=== PATIENT | male | born 1995 | race Caucasian/White ===

== ENCOUNTER 2018-04-26 10:37 | Inpatient (IN) | payer BC, OTHER ==
[~2018-04-26] VITALS: Ht 175.3 cm; Wt 70.3 kg
--- NOTE | 2018-06-22 11:50 | NUR ---
Pre-Admission Patient met in intake office accompanied by his Mother,he is alert and oriented and able to answer most questions but admits to sometimes not remembering things well. Substance abuse History: ETOH ( hard Liquor/Beer) 1 Pint hard Liquor every day for past 1 year ,has been drinking alcohol since he was 14 yrs old,last drink was last night 06/21/18- 25oz Beer. Benzodiazepines ( Xanax) 4mg PO daily for the past 1 year but has been using Xanax since he was 17yrs old ( 5 years),last consumed 3-4 mg PO on 06/19/18 Cocaine - snort- less than a Gram per week- can't remember when last used ,maybe last week. Marijuana- smokes non daily with friends- unable to tell amount,maybe 2 joints a week He has a history of seizures from Benzo and ETOH withdrawal ,last one approx 1 month ago,he did not seek medical help No History of OD or cardiac complications but reports numerous blackouts. Allergy to bananas,Full code, regular diet,Ht is 5'9"and 150lbs on standing scale. Will continue assessment when patient is on the floor.
[2018-06-22 12:42] LABS: *AMPHETAMINE, URINE NEGATIVE (NEGATIVE); *BARBITURATE, URINE NEGATIVE (NEGATIVE); *CANNABINOID, URINE POSITIVE (NEGATIVE); *COCCAINE, URINE POSITIVE (NEGATIVE); *OPIATE, URINE NEGATIVE (NEGATIVE); *PHENCYCLIDINE SCREEN,URINE NEGATIVE (NEGATIVE)
[2018-06-22] MEDS ORDERED: LAMO150T PO (13:13)
[2018-06-22] MEDS ORDERED: LORAZEPAM 1 MG TABLET PO PRN ×2 (13:45)
[2018-06-22] MEDS ORDERED: THIAMINE HCL 200 MG/2 ML VIAL IM ONE (13:45)
[2018-06-22] MEDS ORDERED: LOPERAMIDE HCL 2 MG CAPSULE PO PRN ×2 (13:45)
[2018-06-22] MEDS ORDERED: ONDANSETRON 4 MG/2 ML VIAL IM PRN (13:45)
[2018-06-22] MEDS ORDERED: MAGNESIUM HYDROXIDE 30 ML LIQUID UDC PO PRN (13:45)
[2018-06-22] MEDS ORDERED: ONDANSETRON ODT 4 MG TAB.RAPDIS SL PRN (13:45)
[2018-06-22] MEDS ORDERED: MAG HYDROX/AL HYDROX/SIMETH 30 ML LIQUID UDC PO PRN (13:45)
[2018-06-22] MEDS ORDERED: IBUPROFEN 600 MG TABLET PO PRN (13:45)
[2018-06-22] MEDS ORDERED: LORAZEPAM 2 MG/1 ML VIAL IM PRN (13:45)
[2018-06-22] MEDS ORDERED: 5 DAY TAPER OF LORAZEPAM -SERENITY PROTOCOL PO PRN (13:45)
[2018-06-22 14:07] LABS: BASOPHILS % (AUTO) 0.6 % (0.0-2.0); EOSINOPHILS # (AUTO) 0.1 K/uL (0.0-0.7); EOSINOPHILS % (AUTO) 1.8 % (0.0-7.0); HEMATOCRIT 51.2 % (36.7-47.1); HEMOGLOBIN 17.2 g/dL (12.5-16.3); LYMPHOCYTES # (AUTO) 1.2 K/uL (20.0-40.0); LYMPHOCYTES % (AUTO) 16.8 % (20.5-51.5); MEAN CORPUSCULAR HEMOGLOBIN 27.7 uug (23.8-33.4); MEAN CORPUSCULAR HGB CONC 34 g/dL (32.5-36.3); MEAN CORPUSCULAR VOLUME 82.8 fL (73.0-96.2); MONOCYTES # (AUTO) 0.9 K/uL (2.0-10.0); MONOCYTES % (AUTO) 12.8 % (0.0-11.0); NEUTROPHILS # (AUTO) 4.7 K/uL (1.8-8.9); PLATELET COUNT (AUTO) 268 K/uL (152-348); RED BLOOD CELL COUNT(AUTO) 6.19 MIL/uL (4.06-5.63); WHITE BLOOD COUNT (AUTO) 6.9 K/uL (3.6-10.2)
[2018-06-22 14:19] LABS: ALANINE AMINOTRANSFERASE 25 U/L (16-63); ALKALINE PHOSPHATASE 66 U/L (50-136); ASPARTATE AMINOTRANSFERASE 19 U/L (15-37); BILIRUBIN,TOTAL 0.3 mg/dL (0.2-1.0); CARBON DIOXIDE 29 mmol/L (21-32); CHLORIDE 99 mmol/L (98-107); CREATININE 1.8 mg/dL (0.6-1.3); GLUCOSE 83 mg/dL (74-106); MAGNESIUM 2.5 mg/dL (1.8-2.4); POTASSIUM 4.2 mmol/L (3.5-5.1); TOTAL PROTEIN, SERUM 8.3 g/dL (6.4-8.2); UREA NITROGEN, BLOOD 19 mg/dL (7-18)
[2018-06-22 14:30] LABS: THYROID STIMULATING HORMONE 0.237 mIU/mL (0.358-3.740)
[2018-06-22] MEDS: LORAZEPAM 1 MG TABLET PO SCH ×3 (14:39→20:50)
[2018-06-22 15:02] LABS: ETHANOL < 3 MG/DL (0-0)
[2018-06-22 16:00] VITALS: BP 149/76
[2018-06-22] MEDS ORDERED: Medication Not On Formulary EA (Lamotrigine 1 TAB) PO SCH (17:00)
--- NOTE | 2018-06-22 18:22 | NUR ---
Admission Note Patient is a 22 yr old male who was admitted to [facility] 06/22/18 @ 1231 for a medically supervised withdrawal from ETOH ( Hard Liquor/Beer ), Benzodiazepines ( Xanax) and also states he was abusing Cocaine and Marijuana. He is alert, speech is clear and does not appear to be experiencing any withdrawals at this time, CIWA score is 5 Substance abuse History: ETOH ( hard Liquor/Beer) 1 Pint hard Liquor every day for past 1 year ,has been drinking alcohol since he was 14 yrs old,last drink was last night 06/21/18- 25oz Beer. Benzodiazepines ( Xanax) 4mg PO daily for the past 1 year but has been using Xanax since he was 17yrs old ( 5 years),last consumed 3-4 mg PO on 06/19/18 Cocaine - snort- less than a Gram per week- can't remember when last used ,maybe last week. Marijuana- smokes non daily with friends- unable to tell amount, maybe 1-2 oz a day He has a history of seizures from Benzo and ETOH withdrawal ,last one approx 1 month ago, he did not seek medical help No History of OD or cardiac complications but reports numerous blackouts. Allergy to bananas, Full code, regular diet, Ht is 5'9"and 150lbs on standing scale. Medical History: Patient states that 4 years ago he was diagnosed with epilepsy and he takes Lamictal 150mg PO BID Treatment History: Impact: 05/2017 for 3 days and relapsed immediately upon discharge [facility]-2011 for 18months and then remained sober for an additional 4 months. He states the reason why he started using drugs and drinking alcohol was out of boredom, sadness and it was a way to escape his feelings. The reason why he is seeking treatment today he says is "I don't need drugs and alcohol to escape anymore, need to be more aware". He states he has tried stopping on his own many times but it would only last for a few days as he would think he could have " just one" and be able to control it ,or just use " one time "and not go back to using drugs/alcohol daily. He states he has too much free time since he does not work and has been hanging out with the wrong people who negatively influence him. When he tries to stop using he is afraid he might have a seizure ( which he had 1 last month which was Benzo /Alcohol related withdrawal), his withdrawal symptoms also include irritability, headaches, depression and loss of appetite. His support system is his 2 Moms ( he was adopted at and knows very little of his biological parents , only that his Father moved back to [facility]). Lung sounds clear, no SOB, BS present in all 4 quadrants, PERRLA ,skin intact Patient is in room 322
--- NOTE | 2018-06-22 19:25 | NUR ---
End of Shift Newly admitted patient today 06/22/18 for a medically supervised withdrawal from ETOH and Benzodiazepines, he has a history of epilepsy and seizures, he has been placed on a 5 day Ativan taper which started today. No PRN medications have been requested or required this shift. He had a fluid intake of 1000ml,3 voids and 0 BM, his last CIWA was 8 @ 1600. Continue to follow MD plan of care. Endorsed to mini shifter
--- NOTE | 2018-06-22 19:49 | NUR ---
START OF SHIFT NOTE Rcvd report form outgoing nurse. Pt is a 22 y/o male A/O to person, place, time, and purpose. Pt was admitted for medically supervised withdrawal from ETOH and Benzodiazepines. Pt is on day 1 of a 5 day Ativan taper. Pt has been presenting w/ sweats, fine tremors, anxiety, and a cloudy/unclear head. Pt rcvd no PRN medications during previous shift. Last CIWA 8 @ 1600. Call light is within reach. Pt will continue to be monitored and needs met.
[2018-06-22 20:17] VITALS: BP 136/66
--- NOTE | 2018-06-22 20:20 | NUR ---
CIWA ASSESSMENT CIWA 8. Pt has been presenting w/ sweats, fine tremors, anxiety, and a cloudy/unclear head. V/S: T:98.2, P:72 RR:18, SPO2:98, BP:136/66.
[2018-06-22] MEDS: LAMOTRIGINE 100 MG TABLET PO SCH (20:50)
--- NOTE | 2018-06-23 00:09 | NUR ---
CIWA DEFERRED Pt is in bed w/ his eyes closed. Pt's respirations are unlabored and even.
--- NOTE | 2018-06-23 04:17 | NUR ---
CIWA DEFERRED Pt is in bed w/ his eyes closed. Pt's respirations are unlabored and even.
--- NOTE | 2018-06-23 07:12 | NUR ---
END OF SHIFT NOTE Endorsed pt to oncoming nurse. Pt is a 22 y/o male A/O to person, place, time, and purpose. Pt was admitted for medically supervised withdrawal from ETOH and Benzodiazepines. Pt completed day 1 of a 5 day Ativan taper. Pt continued been presenting w/ sweats, fine tremors, anxiety, and a cloudy/unclear head. Pt denies any withdrawal s/s, as well as, any S/I or H/I. PT rcvd no PRN medications during shift. Pt's fluid intake was 736ml and he slept for 9hrs. Last CIWA 8 @ 1999. Call light is within reach
--- NOTE | 2018-06-23 07:15 | NUR ---
Start Of Shift Patient is a 22 yr old male who was admitted to [facility] on 06/22/18 for a medically supervised withdrawal from ETOH and Benzodiazepines,he has been placed on a 5 day Ativan taper and today is day 2.No PRN medications were required or requested on PM shift,he slept for 9 hours and last CIWA was 8. Currently he is asleep in bed,breathing even and unlabored, call light with reach.Continue to follow MD plan of care and offer support and encouragement.
[2018-06-23 07:19] LABS: BASOPHILS % (AUTO) 0.8 % (0.0-2.0); EOSINOPHILS # (AUTO) 0.2 K/uL (0.0-0.7); EOSINOPHILS % (AUTO) 3.4 % (0.0-7.0); HEMATOCRIT 47.8 % (36.7-47.1); HEMOGLOBIN 16.2 g/dL (12.5-16.3); LYMPHOCYTES # (AUTO) 1.3 K/uL (20.0-40.0); LYMPHOCYTES % (AUTO) 20.9 % (20.5-51.5); MEAN CORPUSCULAR HEMOGLOBIN 28.1 uug (23.8-33.4); MEAN CORPUSCULAR HGB CONC 34 g/dL (32.5-36.3); MEAN CORPUSCULAR VOLUME 82.7 fL (73.0-96.2); MONOCYTES # (AUTO) 0.7 K/uL (2.0-10.0); MONOCYTES % (AUTO) 11.3 % (0.0-11.0); NEUTROPHILS # (AUTO) 3.9 K/uL (1.8-8.9); NEUTROPHILS % (AUTO) 63.6 % (38.5-71.5); PLATELET COUNT (AUTO) 258 K/uL (152-348); RED BLOOD CELL COUNT(AUTO) 5.78 MIL/uL (4.06-5.63); WHITE BLOOD COUNT (AUTO) 6.2 K/uL (3.6-10.2)
[2018-06-23 07:56] LABS: BILIRUBIN,TOTAL 0.5 mg/dL (0.2-1.0); CREATININE 1.6 mg/dL (0.6-1.3); MAGNESIUM 2.2 mg/dL (1.8-2.4); TOTAL PROTEIN, SERUM 7.7 g/dL (6.4-8.2)
[2018-06-23 08:00] VITALS: BP 121/76
[2018-06-23] MEDS: LAMOTRIGINE 100 MG TABLET PO SCH ×2 (08:57→21:34)
[2018-06-23] MEDS: MULTIVITAMINS,THERAPEUTIC TABLET PO SCH (08:57)
[2018-06-23] MEDS: FOLIC ACID 1 MG TABLET PO SCH (08:57)
[2018-06-23] MEDS: THIAMINE HCL 100 MG TABLET PO SCH (08:57)
[2018-06-23] MEDS: LORAZEPAM 1 MG TABLET PO SCH ×4 (08:57→21:33)
[2018-06-23] MEDS ORDERED: TUBERCULIN,PURIF.PROT.DERIV. 5 TU/0.1 ML TEST ID ONE (09:00)
--- NOTE | 2018-06-23 09:00 | NUR ---
PPD placed RFA
--- NOTE | 2018-06-23 09:00 | NUR ---
ARNOLDO 11 Patient presents with lethargy,restlessness ,diaphoresis and chills Scheduled Ativan 1mg PO given
[2018-06-23 12:00] VITALS: BP 124/70
--- NOTE | 2018-06-23 12:30 | NUR ---
ARNOLDO 11 Patient presents with lethargy,restlessness ,diaphoresis and chills Scheduled Ativan 1mg PO given
--- NOTE | 2018-06-23 12:46 | NUR ---
Therapist prompted client to attend all group therapy sessions.
[2018-06-23 15:07] LABS: HEPATITIS B SURFACE AG Negative (Negative)
[2018-06-23 16:00] VITALS: BP 146/78
--- NOTE | 2018-06-23 16:00 | NUR ---
ARNOLDO 11 Patient presents with lethargy,restlessness ,diaphoresis and chills
--- NOTE | 2018-06-23 19:04 | NUR ---
End of Shift Patient is a 22 yr old male who was admitted on 06/22/18 for a medically supervised withdrawal from ETOH and Benzodiazepines, he has a history of epilepsy and seizures, he has been placed on a 5 day Ativan taper and this is day 2. No PRN medications have been requested or required this shift. Patient presents with lethargy, restlessness ,diaphoresis and chills. He had a fluid intake of 2750 ml, 4 voids and 0 BM, his last CIWA was 11 @ 1600. Continue to follow MD plan of care. Endorsed to date night caregiver
--- NOTE | 2018-06-23 19:30 | NUR ---
START OF SHIFT Pt is a 22 yr old male who was admitted for ETOH and Benzodiazepines withdrawal. Pt continues on a 5 day Ativan taper as ordered and this is day 2. No PRN medications were goven per day shift. Pt presents with anxiety, restlessness ,diaphoresis and chills. Last CIWA was 11 @ 1600. All safety measures in place,call light is within reach,will continue to monitor.
[2018-06-23 20:00] VITALS: BP 146/79
--- NOTE | 2018-06-23 20:00 | NUR ---
[facility] 11 Patient presents with anxiety,restlessness ,intermittent diaphoresis and chills;medications are due soon.
--- NOTE | 2018-06-24 | NUR ---
CIWA DEFERRED Pt is resting in bed with his eyes closed; respirations are unlabored and even;no s/s of distress noted;v/s refused.
--- NOTE | 2018-06-24 | NUR ---
CIWA DEFERRED Pt is resting in bed with his eyes closed; respirations are unlabored and even;no s/s of distress noted;v/s refused.
--- NOTE | 2018-06-24 06:49 | NUR ---
END OF SHIFT Pt is a 22 yr old male who was admitted for ETOH and Benzodiazepines withdrawal. Pt continues on a 5 day Ativan taper as ordered and this is day 3. No PRN medications were given during the night. Pt presented with anxiety, restlessness ,diaphoresis and chills.Routine medications are helpful in managing withdrawal symptoms. Last CIWA was 10 @ 2000.Pt slept 8 hours, fluid intake was 1000 ml,no urine voided; no b/m reported. All safety measures in place,call light is within reach,will endorse care to day shift nurse.
--- NOTE | 2018-06-24 07:30 | NUR ---
Start of Shift Resident Care Director received report on 22 year old male admitted to [facility] on 06/22/19 for medical management of ETOH and Benzodiazepine withdrawals. Pt endorses PMH of Epilepsy and no PPH. Pt endorses allergies to Bananas. Full code and regular diet. Pt currently on 5 day Ativan taper with last CIWA 10, per NOC report. Pt not administered PRN medications per NOC report. Resident Care Director encounters pt in pts room with pt resting with eyes close. Even and unlabored respirations noted. Bed in low position with wheels locked and side rails up x2.
[2018-06-24 08:00] VITALS: BP 113/67
--- NOTE | 2018-06-24 08:00 | NUR ---
CIWA 12 Pt is diaphoretic, tremulous, anxious and restless. Pt with complaints of TH, nausea and chills. Will continue to monitor, support and encourage according to plan of care.
[2018-06-24] MEDS: LORAZEPAM 1 MG TABLET PO SCH ×3 (09:31→21:29)
[2018-06-24] MEDS: MULTIVITAMINS,THERAPEUTIC TABLET PO SCH (09:31)
[2018-06-24] MEDS: FOLIC ACID 1 MG TABLET PO SCH (09:31)
[2018-06-24] MEDS: LAMOTRIGINE 100 MG TABLET PO SCH ×2 (09:31→21:29)
[2018-06-24] MEDS: THIAMINE HCL 100 MG TABLET PO SCH (09:31)
--- NOTE | 2018-06-24 10:38 | NUR ---
Therapist prompted client to attend group therapy.
[2018-06-24 12:00] VITALS: BP 113/58
--- NOTE | 2018-06-24 12:00 | NUR ---
CIWA 12 Pt is anxious and restless. Pt with tremors and diaphoresis. Pt with chills and sweats. Will continue to monitor, support and encourage according to plan of care.
--- NOTE | 2018-06-24 16:07 | NUR ---
Endorsement Repatcher endorsed care of pt to TARA Raymond with no further comments, questions or concerns voiced. Will continue to monitor, support and encourage according to plan of care.
--- NOTE | 2018-06-24 16:10 | NUR ---
Assumed care of Pt. He is A/O X4 with no complaints at this time.
[2018-06-24 17:17] VITALS: BP 132/75
--- NOTE | 2018-06-24 18:49 | NUR ---
END OF SHIFT: Pt continues on Ativan taper to manage s/s of w/d which include anxiety,sweats ,restlessness and irritability. He attended groups and interacted with peers/ Last CIWA 10. He was compliant with increased fluids.Will pass shift report to oncoming night nurse.
--- NOTE | 2018-06-24 19:30 | NUR ---
START OF SHIFT Pt is a 22 y/o male admitted on 06/22/18 for ETOH and benzo withdrawal. Pt is on a 5 day Ativan taper, tolerating well. Last CIWA 10. Upon assessment Pt presents with anxiety, agitation, body aches, nausea, and difficulty falling and staying asleep. Medications due. Safety measures in place. Call light within reach.
[2018-06-24 20:00] VITALS: BP 133/79
--- NOTE | 2018-06-24 20:00 | NUR ---
CIWA 8 Pt presents with anxiety, agitation, body aches, nausea, and difficulty falling and staying asleep. Safety measures in place. Call light within reach. Will continue to monitor.
--- NOTE | 2018-06-25 | NUR ---
CIWA DEFERRED AND VITAL SIGNS REFUSED Patient is noted in bed with eyes closed. Breathing even and non labored. CIWA and vital signs not able to be completed per order. Safety measures in place. Call light within reach. Will continue to monitor.
--- NOTE | 2018-06-25 07:07 | NUR ---
END OF SHIFT Pt is a 22 y/o male admitted on 06/22/18 for ETOH and benzo withdrawal. Pt to continue a 5 day Ativan taper. Pt presented with anxiety, agitation, body aches, nausea, and difficulty falling and staying asleep. No PRN medications were administered during shift. Last CIWA 8. Pt slept 7 hours. Intake 1355 ml, void x 5, stool x 0. Safety measures in place. Call light within reach. Pt's needs have been met. Endorsed to day shift nurse.
--- NOTE | 2018-06-25 07:30 | NUR ---
Start of Shift Housing Director received report on 22 year old male admitted to [facility] on 06/22/19 for medical management of ETOH and Benzodiazepine withdrawals. Pt endorses PMH of Epilepsy and no PPH. Pt endorses allergies to Bananas. Full code and regular diet. Pt currently on 5 day Ativan taper with last CIWA 8, per NOC report. Pt not administered PRN medications per NOC report. Housing Director encounters pt in pts room with pt resting with eyes close. Even and unlabored respirations noted. Bed in low position with wheels locked and side rails up x2. Will continue to monitor, support and encourage according to plan of care.
[2018-06-25 07:33] LABS: BASOPHILS % (AUTO) 0.6 % (0.0-2.0); EOSINOPHILS # (AUTO) 0.2 K/uL (0.0-0.7); EOSINOPHILS % (AUTO) 3.9 % (0.0-7.0); HEMATOCRIT 46.6 % (36.7-47.1); HEMOGLOBIN 15.8 g/dL (12.5-16.3); LYMPHOCYTES # (AUTO) 1.5 K/uL (20.0-40.0); LYMPHOCYTES % (AUTO) 28.3 % (20.5-51.5); MEAN CORPUSCULAR HGB CONC 34 g/dL (32.5-36.3); MEAN CORPUSCULAR VOLUME 82.5 fL (73.0-96.2); MONOCYTES # (AUTO) 0.6 K/uL (2.0-10.0); MONOCYTES % (AUTO) 10.3 % (0.0-11.0); NEUTROPHILS # (AUTO) 3.1 K/uL (1.8-8.9); NEUTROPHILS % (AUTO) 56.9 % (38.5-71.5); PLATELET COUNT (AUTO) 261 K/uL (152-348); RED BLOOD CELL COUNT(AUTO) 5.65 MIL/uL (4.06-5.63); WHITE BLOOD COUNT (AUTO) 5.4 K/uL (3.6-10.2)
[2018-06-25 07:39] LABS: CREATININE 1.3 mg/dL (0.6-1.3); POTASSIUM 4.3 mmol/L (3.5-5.1)
[2018-06-25 08:00] VITALS: BP 116/69
--- NOTE | 2018-06-25 08:00 | NUR ---
CIWA 6 Pt is anxious and restless, with moist skin and fine tremors. Will continue to monitor, support and encourage according to plan of care.
[2018-06-25] MEDS: MULTIVITAMINS,THERAPEUTIC TABLET PO SCH (09:20)
[2018-06-25] MEDS: LORAZEPAM 1 MG TABLET PO SCH ×2 (09:20→21:10)
[2018-06-25] MEDS: LAMOTRIGINE 100 MG TABLET PO SCH ×2 (09:20→21:10)
[2018-06-25] MEDS: FOLIC ACID 1 MG TABLET PO SCH (09:20)
[2018-06-25] MEDS: THIAMINE HCL 100 MG TABLET PO SCH (09:20)
[2018-06-25 12:00] VITALS: BP 128/91
--- NOTE | 2018-06-25 12:00 | NUR ---
CIWA 6 Pt with fine tremors, anxiety, moist skin and restlessness. Will continue to monitor, support and encourage according to plan of care.
[2018-06-25 16:30] VITALS: BP 125/84
--- NOTE | 2018-06-25 16:30 | NUR ---
CIWA 6 Pt anxious, restless and with fine tremors and complaints of pain. Will continue to monitor, support and encourage according to plan of care.
--- NOTE | 2018-06-25 18:57 | NUR ---
End of Shift Cleaner And Presser provided report on 22 year old male admitted to [facility] on 06/22/19 for medical management of ETOH and Benzodiazepine withdrawals. Pt endorses PMH of Epilepsy and no PPH. Pt endorses allergies to Bananas. Full code and regular diet. Pt currently on 5 day Ativan taper with last CIWA 6, recorded at 1630. Pt not administered any PRN medications this shift. Pt is A/O x4 and able to make needs known. Pt with a normal affect and congruent mood. Pt has been isolative and withdrawn to room, but is open and approachable. Pt has fine tremors, diaphoresis and anxiety. Pt can be bright and energetic. Pt is pleasant and polite. Bed in low position with wheels locked and side rails up x2.
--- NOTE | 2018-06-25 19:14 | NUR ---
Start of shift note Received report from day shift nurse. Pt is a 22 yo male, A+Ox4, presenting to [facility] for medically supervised ETOH/Benzo withdrawal. Pt was also using Cocaine and Marijuana. Pt noted with restlessness, anxiety, and agitation. Pt has HX of epilepsy which will be monitored during shift. Pt is on 5 day Ativan taper, tolerated well. Respirations even and unlabored. Will continue to monitor.
[2018-06-25 20:15] VITALS: BP 139/76
--- NOTE | 2018-06-25 20:15 | NUR ---
CIWA Assessment CIWA: 8. Pt noted with sweat anxiety, agitation, and fine tremors. Respirations even and unlabored. Will continue to monitor.
--- NOTE | 2018-06-26 00:59 | NUR ---
V/S refused and CIWA Assessment deferred for sleep. Respirations even and unlabored. Will continue to monitor.
--- NOTE | 2018-06-26 04:53 | NUR ---
V/S refused and CIWA Assessment deferred for sleep. Respirations even and unlabored. Will continue to monitor.
--- NOTE | 2018-06-26 07:00 | NUR ---
End of shift note Pt was continuously noted with restlessness, anxiety, and agitation. Pt remained in room for majority of shift except to get food from kitchen and to go smoke on smoking patio. Pt remained cooperative and compliant with all aspects of treatment. Pt was not given any PRN medications during shift. Pt remains on 5 day Ativan taper, tolerated well. Pt slept for a total of 7 HRS. Last CIWA: 8 @2014. Respirations even and unlabored. Will endorse to day shift nurse.
--- NOTE | 2018-06-26 07:30 | NUR ---
Start Of Shift Patient is a 22 yr old male who was admitted to [facility] on 06/22/18 for a medically supervised withdrawal from ETOH and Benzodiazepines,he has been placed on a 5 day Ativan taper and today is day 4.No PRN medications were required or requested on PM shift,he slept for 7 hours and last CIWA was 8. Currently he is asleep in bed,breathing even and unlabored, call light with reach.Continue to follow MD plan of care and offer support and encouragement.
[2018-06-26 08:00] VITALS: BP 122/62
[2018-06-26] MEDS: LAMOTRIGINE 100 MG TABLET PO SCH ×2 (08:48→21:42)
[2018-06-26] MEDS: THIAMINE HCL 100 MG TABLET PO SCH (08:49)
[2018-06-26] MEDS: MULTIVITAMINS,THERAPEUTIC TABLET PO SCH (08:49)
[2018-06-26] MEDS: FOLIC ACID 1 MG TABLET PO SCH (08:49)
[2018-06-26] MEDS ORDERED: LORAZEPAM 1 MG TABLET PO SCH (09:00)
--- NOTE | 2018-06-26 09:00 | NUR ---
CIWA 10 Patient presents with restlessness, diaphoresis, fidgeting and excitability
[2018-06-26] MEDS ORDERED: LAMO100T2 PO (11:26)
[2018-06-26] MEDS ORDERED: NALT50TA PO (11:28)
[2018-06-26 12:00] VITALS: BP 139/77
--- NOTE | 2018-06-26 12:00 | NUR ---
CIWA 10 Patient presents with restlessness, diaphoresis, fidgeting and excitability
--- NOTE | 2018-06-26 15:08 | NUR ---
Endorsement Endorsed care, all pertinent information relayed, last CIWA 9 @ 1200
[2018-06-26 16:00] VITALS: BP 129/91
--- NOTE | 2018-06-26 16:00 | NUR ---
CIWA Assessment CIWA of 6. Pt. in room watching television. Pt. presents with some anxiety and agitation. Pt. compliant with medication regiment and treatment plan. Will continue to monitor pt.'s behavior for safety.
--- NOTE | 2018-06-26 19:03 | NUR ---
End of Shift Note Pt. is a 22 y/o male admitted for the medically managed withdrawal from ETOH, and Benzodiazepines. Pt. was placed on an ativan taper manage withdrawal symptoms. Pt. presented with anxiety and agitation throughout shift. Pt. remained medication and treatment plan compliant throughout shift. Safety measures in place. Will endorse pt.s care to oncoming shift.
--- NOTE | 2018-06-26 19:30 | NUR ---
START OF SHIFT Received patient awake, alert, and oriented x4 attending group therapy and socializing with other patients. Patient is a 22 year old male admitted for medically supervised detox from ETOH and benzos with secondary diagnoses of epilepsy for which he has been prescribed Lamictal. Patient is full code, follows a regular diet, and is allergic to bananas. Per endorsement patient's 5 day ativan taper has been completed today and his last CIWA score was a 6 taken at 1600. No PRN medications were given and patient is set to be discharged tomorrow. Will continue to monitor.
--- NOTE | 2018-06-26 20:00 | NUR ---
CIWA = 6 Patient was seen in activity room watching television with other patients. He continues to present with restlessness, anxiety, and mild tremors. He is compliant with treatment plan and medication regimen. Will continue to monitor.
[2018-06-26 20:13] VITALS: BP 136/69
--- NOTE | 2018-06-27 | NUR ---
VITALS AND CIWA DEFERRED Patient noted lying in bed with eyes closed and even, unlabored respirations. HOB and bilateral side rails raised for safety. Bed in a low, locked position. Vital signs refused and CIWA assessment deferred. Will continue to monitor.
--- NOTE | 2018-06-27 04:00 | NUR ---
VITALS AND CIWA DEFERRED Patient noted to be lying in bed with eyes closed and even, unlabored respirations. HOB and bilateral side rails are raised for safety. Fall and safety precautions maintained. Bed is in a low and locked position. Call light is within reach. Vital signs refused and CIWA assessment is deferred at this time. Will continue to monitor.
--- NOTE | 2018-06-27 07:20 | NUR ---
Start Of Shift Patient is a 22 yr old male who was admitted to [facility] on 06/22/18 for a medically supervised withdrawal from ETOH and Benzodiazepines,he has completed a 5 day Ativan taper and will be discharged home this AM.No PRN medications were required or requested on PM shift,he slept for 6 hours and last CIWA was 6. Currently he is asleep in bed,breathing even and unlabored, call light with reach.Continue to follow MD plan of care and offer support and encouragement.
--- NOTE | 2018-06-27 07:30 | NUR ---
END OF SHIFT Patient is noted to be lying in bed with eyes closed and even, unlabored respirations. Patient is a 22 year old male admitted for medically supervised detox from ETOH and benzos with secondary diagnoses of epilepsy. During the shift, patient was noted to be participating in group therapy and then stayed in activity room to watch a movie with some other patients. No complaints of negative symptoms reported by the patient for this shift. His last CIWA was 6 and he slept for about 6 hours during the night. Endorsed to oncoming AM nurse.
[2018-06-27] MEDS: FOLIC ACID 1 MG TABLET PO SCH (07:48)
[2018-06-27] MEDS: LAMOTRIGINE 100 MG TABLET PO SCH (07:48)
[2018-06-27] MEDS: THIAMINE HCL 100 MG TABLET PO SCH (07:48)
[2018-06-27] MEDS: MULTIVITAMINS,THERAPEUTIC TABLET PO SCH (07:52)
[2018-06-27 08:00] VITALS: BP 129/86
--- NOTE | 2018-06-27 09:32 | NUR ---
Discharge Note Patient signed and dated all DC paperwork, prescription and personal belongings placed in belongings bag. VS stable. Patient states no SI/HI at this time, patient ambulated off the unit with PCT @[id number]
== END 2018-06-27 09:42 | disposition home or self-care (01) | DRG 895 ==
LOC: SRC 06-22 11:37
PROVIDERS: ADMIT Family Medicine Addiction Medicine; ATTEND Family Medicine Addiction Medicine
PROC: HZ2ZZZZ Detoxification Services for Substance Abuse Treatment (ICD-10-PCS; principal; 2018-06-22)
PROC: HZ41ZZZ Group Counseling for Substance Abuse Treatment, Behavioral (ICD-10-PCS; 2018-06-23)
PROC: HZ31ZZZ Individual Counseling for Substance Abuse Treatment, Behavioral (ICD-10-PCS; 2018-06-24)
DX: F10.230 Alcohol dependence with withdrawal, uncomplicated (principal); F13.230 Sedative, hypnotic or anxiolytic dependence with withdrawal, uncomplicated; Y90.0 Blood alcohol level of less than 20 mg/100 ml; F12.10 Cannabis abuse, uncomplicated; F14.10 Cocaine abuse, uncomplicated; F17.210 Nicotine dependence, cigarettes, uncomplicated; G40.909 Epilepsy, unspecified, not intractable, without status epilepticus; Z79.899 Other long term (current) drug therapy; F41.1 Generalized anxiety disorder; F98.8 Other specified behavioral and emotional disorders with onset usually occurring in childhood and adolescence; R94.6 Abnormal results of thyroid function studies
CPT/HCPCS: 36415; 70030-TC; 80307; 80346; 80349; 80353; 83735; 84443; 85025; 86592; 86705; 86803; 87340; 87806; A4663; G0480; J3411